=== PATIENT | female | born 1980 | race Caucasian/White ===

== ENCOUNTER 2018-09-22 17:07 | Emergency (ER) | payer BC ==
[~2018-09-22] VITALS: Ht 180.3 cm; Wt 62.7 kg
[~2018-09-22 17:07] MED LIST changes: -ELIQUIS 5MG PO; -NORCO 325 MG-51 TAB PO; -SPRINTEC 35 MCG1 TAB PO
[2018-09-22 17:11] VITALS: TEMP 98.1
[2018-09-22] MEDS ORDERED: SPRINTEC 35 MCG1 TAB PO (17:16)
[2018-09-22 18:16] LABS: BASO % 0.2 % (0.0-2.0); EOS % 0.3 % (0-4.0); GRAN # 7.2 (1.4-6.5); GRAN % 77.5 % (42.2-75.2); HEMOGLOBIN 10.9 g/dl (12.5-16.0); LYMPH # 1.4 (1.2-3.4); LYMPH % 14.8 % (20.0-51.0); MEAN CELL VOLUME 93 fl (80.0-100.0); MEAN CORPUSCULAR HEMOGLOBIN 30 pg (27.0-31.0); MEAN CORPUSCULAR HGB CONC 33 g/dl (33.0-37.0); MEAN PLATELET VOLUME 9.7 fl (7.4-10.4); MONO # 0.6 (0.1-0.6); MONO % 6.9 % (1.7-9.3); PLATELET COUNT 275 K/mm3 (130-400); RED BLOOD COUNT 3.58 M/mm3 (4.10-5.30); REDCELL DISTRIBUTION WIDTH-CV 13.5 % (11.5-14.5)
[2018-09-22 18:25] LABS: PROTHROMBIN TIME 11.8 SECONDS (9.7-12.8)
[2018-09-22 18:29] LABS: ALBUMIN 3.9 gm/dL (3.5-5.0); BILIRUBIN,TOTAL 0.7 mg/dL (0.0-1.0); CALCIUM 9.1 mg/dL (8.4-10.2); CREATININE, serum 0.88 (0.52-1.25); TOTAL PROTEIN 6.9 gm/dL (6.4-8.2)
[2018-09-22 18:31] LABS: HEMATOCRIT 33.2 % (37.0-47.0)
[2018-09-22] MEDS ORDERED: NORCO 325 MG-51 TAB PO (19:19)
[2018-09-22] MEDS ORDERED: ELIQUIS 5MG PO (19:19)
[2018-09-22 19:27] VITALS: BP 116/92; PULSE 72
== END 2018-09-22 19:27 | disposition home or self-care (01) ==
LOC: COL.ER 17:07
PROVIDERS: Family Medicine
DX: I26.99 Other pulmonary embolism without acute cor pulmonale (principal); Z79.01 Long term (current) use of anticoagulants
CPT/HCPCS: J1170; J2550

== ENCOUNTER → 2018-09-22 | Outpatient (CLI) | payer BC ==
[~2018-09-22] MED LIST: ELIQUIS 5MG PO; LEVAQUIN 5500 MG/TA1 PO; MOTRIN 600600 MG/TAB PO; NORCO 325 MG-51 TAB PO; PERCOCET 325 MG1 TA2 PO; PRENATAL1 TA1 PO; SENOKOT S 50 MG1 TAB PO; SLOW FE45 MG PO; SPRINTEC 35 MCG1 TAB PO
== END ==
LOC: COL.RAD 15:57
DX: J90 Pleural effusion, not elsewhere classified (principal); I26.99 Other pulmonary embolism without acute cor pulmonale
CPT/HCPCS: Q9967

== ENCOUNTER → 2018-09-22 | Outpatient (CLI) | payer BC | LOC: COL.RAD 09:02 | DX: R10.11 Right upper quadrant pain (principal) ==

== ENCOUNTER → 2018-10-14 | Outpatient (CLI) | payer BC ==
[~2018-10-14] MED LIST changes: +ELIQUIS 5MG PO; +NORCO 325 MG-51 TAB PO; +SPRINTEC 35 MCG1 TAB PO
== END ==
LOC: COL.VAS 10-04 10:00
DX: I26.99 Other pulmonary embolism without acute cor pulmonale (principal); I36.1 Nonrheumatic tricuspid (valve) insufficiency

== ENCOUNTER → 2018-12-23 | Outpatient (CLI) | payer BC | LOC: COL.RAD 11:00 | DX: I26.99 Other pulmonary embolism without acute cor pulmonale (principal) | CPT/HCPCS: Q9967 ==

== ENCOUNTER → 2021-02-14 | Outpatient (CLI) | payer BC | LOC: MC.RAD 12-19 09:45 | DX: Z12.31 Encounter for screening mammogram for malignant neoplasm of breast (principal) ==